=== PATIENT | female | born 1950 | race Two or more races ===

== ENCOUNTER 2017-10-23 06:10 | Emergency (ER) | payer SELFPAY ==
[~2017-10-23] VITALS: Ht 160 cm; Wt 81.6 kg
[2017-10-23] MEDS ORDERED: IPRATRPIUM/ALBUTEROL 0.5/2.5MG 3 ML NEBU. ONE (06:21)
--- NOTE | 2017-10-23 06:29 | EKG ---
[facility] [address] [place] [address] Test Date: 2017-10-23 Test Time: 06:21:51 Pat Name: AMARI WEINSTEIN Department: Room: Gender: F [employer]: : 1950 Requested By: JULIA CANTRELL Order Number: [id number] Reading MD: Measurements Intervals [place] Rate: 72 P: 49 NH: 166 QRS: 21 QRSD: 88 T: 49 QT: 398 QTc: 437 Interpretive Statements SINUS RHYTHM QRS(T) CONTOUR ABNORMALITY CONSIDER ANTEROSEPTAL MYOCARDIAL DAMAGE T ABNORMALITY IN ANTERIOR LEADS ABNORMAL ECG RI6.01 No previous ECG available for comparison
[2017-10-23] MEDS ORDERED: IPRATRPIUM/ALBUTEROL 0.5/2.5MG 3 ML NEBU. NEB ONE (06:30)
--- NOTE | 2017-10-23 06:36 | PHYS DOC ---
Past Medical History Past Medical History: Hypertension Adult General Chief Complaint Chief Complaint: SHORTNESS OF BREATH HPI HPI Patient is a 66 year old female who presents with sinus congestion, productive cough, shortness of breath. She also has pressure-like chest pain, described as nonradiating. Her shortness of breath worsens with exertion, no reported orthopnea. Denies history of PE or DVT. Patient traveled here from [place] 3 weeks ago and plan to return this morning by plane. She denies pain or swelling in her legs, she is a nonsmoker, she used a family members inhaler, no history of reactive airway disease. No fevers reported. Denies history of coronary artery disease. She did take her losartan this morning at 5 AM Review of Systems Review of Systems Constitutional: Denies fever or chills [] Eyes: Denies change in visual acuity, redness, or eye pain [] HENT: Per history of present illness Respiratory: Per history of present illness Cardiovascular: No additional information not addressed in HPI [] GI: Denies abdominal pain, nausea, vomiting, bloody stools or diarrhea [] : Denies dysuria or hematuria [] Musculoskeletal: Denies back pain or joint pain [] Integument: Denies rash or skin lesions [] Neurologic: Denies headache, focal weakness or sensory changes [] All other systems were reviewed and found to be within normal limits, except as documented in this note. Current Medications Current Medications Current Medications Medications (Trade) Dose Ordered Sig/German Start Time Stop Time Status Last Admin Dose Admin Albuterol/ Ipratropium (Duoneb) 3 ml 1X ONCE 10/23/17 06:30 10/23/17 06:45 DC 10/23/17 06:30 3 ML Aspirin (Ecotrin) 325 mg 1X ONCE 10/23/17 06:45 10/23/17 06:46 DC 10/23/17 06:46 325 MG Info (Do NOT chart on this entry -- for MONITORING) 1 each PRN DAILY PRN 10/23/17 07:00 10/25/17 06:59 Iohexol (Omnipaque 300 Mg/ml) 75 ml 1X ONCE 10/23/17 07:00 10/23/17 07:01 DC 10/23/17 07:11 75 ML Allergies Allergies Allergies Coded Allergies Type Severity Reaction Last Updated Verified No Known Drug Allergies 10/23/17 No Physical Exam Physical Exam Constitutional: Well developed, well nourished, no acute distress, non-toxic appearance. [] HENT: Normocephalic, atraumatic, bilateral external ears normal, oropharynx moist, no oral exudates, nose normal. [] Eyes: PERRLA, EOMI, conjunctiva normal, no discharge. [] Neck: Normal range of motion, no tenderness, supple, no stridor. [] Cardiovascular:Heart rate regular with regular rhythm, no murmur [] Lungs & Thorax: Bilateral breath sounds, expiratory wheeze diffusely Abdomen: soft, no tenderness, no masses, no pulsatile masses. [] Skin: Warm, dry, no erythema, no rash. [] Back: No tenderness, no CVA tenderness. [] Extremities: No tenderness, no cyanosis, no clubbing, ROM intact, no edema, negative Homans bilaterally Neurologic: Alert and oriented X 3, normal motor function, normal sensory function, no focal deficits noted. [] Psychologic: Affect normal, judgement normal, mood normal. [] Current Patient Data Vital Signs Vital Signs Date Time Temp Pulse Resp B/P (MAP) Pulse Ox O2 Delivery O2 Flow Rate FiO2 10/23/17 06:26 95 Nasal Cannula 3.0 10/23/17 06:13 97.7 86 26 165/110 (128) 97.7 Lab Values Laboratory Tests Test 10/23/17 06:27 10/23/17 06:30 10/23/17 06:32 POC Troponin I 0.08 ng/ml (<0.08) White Blood Count 11.6 x10^3/uL (4.0-11.0) H Red Blood Count 4.43 x10^6/uL (3.50-5.40) Hemoglobin 13.0 g/dL (12.0-15.5) Hematocrit 39.4 % (36.0-47.0) Mean Corpuscular Volume 89 fL (79-100) Mean Corpuscular Hemoglobin 29 pg (25-35) Mean Corpuscular Hemoglobin Concent 33 g/dL (31-37) Red Cell Distribution Width 14.4 % (11.5-14.5) Platelet Count 266 x10^3/uL (140-400) Neutrophils (%) (Auto) 76 % (31-73) H Lymphocytes (%) (Auto) 11 % (24-48) L Monocytes (%) (Auto) 7 % (0-9) Eosinophils (%) (Auto) 5 % (0-3) H Basophils (%) (Auto) 1 % (0-3) Neutrophils # (Auto) 8.8 x10^3uL (1.8-7.7) H Lymphocytes # (Auto) 1.3 x10^3/uL (1.0-4.8) Monocytes # (Auto) 0.8 x10^3/uL (0.0-1.1) Eosinophils # (Auto) 0.6 x10^3/uL (0.0-0.7) Basophils # (Auto) 0.1 x10^3/uL (0.0-0.2) Prothrombin Time 12.8 SEC (11.7-14.0) Prothrombin Time INR 1.0 (0.8-1.1) Magnesium Level 2.0 mg/dL (1.8-2.4) IT-Djb-[id number]-Type Natriuretic Peptide 167 pg/mL (0-124) H POC Hemoglobin 12.9 g/dL (12-15) POC Hematocrit 38 % (36-40) POC Sodium 139 mmol/L (135-145) POC Potassium 3.8 mmol/L (3.5-5.0) POC Chloride 110 mmol/L (98-110) POC Total CO2 21 mmol/L (23-32) L Anion Gap 13 mmol/L (6-14) POC Blood Urea Nitrogen 12 mg/dL (8-26) POC Creatinine 0.6 mg/dL (0.5-1.4) Glucose Level 127 mg/dL (70-99) H POC Ionized Calcium (Ishaan) 0.91 mmol/L (1.13-1.32) L Laboratory Tests 10/23/17 06:30 Laboratory Tests 10/23/17 06:32 EKG EKG 72 bpm, sinus, normal axis, normal intervals, no ST elevation or depression, biphasic T-wave in V3 and V4, nonischemic T waves, interpreted by wa approver shows 77 bpm, sinus rhythm, no dysrhythmia appreciated, interpreted by me SPO2 shows 94% with good waveform, on 2 L NC O2 interpreted by wa Radiology/Procedures Radiology/Procedures CTA Chest: IMPRESSION: No CT evidence of central pulmonary emboli. Course & Med Decision Making Course & Med Decision Making Pertinent Labs and Imaging studies reviewed. (See chart for details) Pt was given DuoNeb breathing treatments while labs, EKG, CT of the chest was performed. There is no acute findings on ED workup. Patient was feeling better. Wheezing resolved after breathing treatments. Counseled patient on home treatment with 5 days of prednisone, albuterol inhaler as needed. Return if worsening symptoms. Patient will wait 3 days before traveling back to her home to ensure symptoms improved. Dragon Disclaimer Dragon Disclaimer This electronic medical record was generated, in whole or in part, using a voice recognition dictation system. Departure Departure Impression: Primary Impression: Upper respiratory infection Disposition: HOME, SELF-CARE Condition: IMPROVED Referrals: NO PCP (PCP) Scripts Prednisone (PREDNISONE) 50 Mg Tablet 1 TAB PO DAILY, #5 TAB Prov: JULIA CANTRELL MD 10/23/17 Albuterol Sulfate (PROAIR HFA INHALER) 8.5 Gm Hfa.aer.ad 1-2 PUFF INH PRN Q4-6HRS Y for SHORTNESS OF BREATH, #1 INHALER 0 Refills with spacer Prov: JULIA CANTRELL MD 10/23/17 JULIA CANTRELL MD Oct 23, 2017 06:36
[2017-10-23 06:37] LABS: POTASSIUM ISTAT 3.8 mmol/L (3.5-5.0)
[2017-10-23] MEDS ORDERED: ASPIRIN ENTERIC COATED 325 MG TABLET.DR. PO ONE (06:45)
[2017-10-23 06:49] LABS: BASO # 0.1 x10^3/uL (0.0-0.2); BASO % 1 % (0-3); EOS % 5 % (0-3); HEMATOCRIT 39.4 % (36.0-47.0); LYMPH # 1.3 x10^3/uL (1.0-4.8); LYMPH % 11 % (24-48); MEAN CORPUSCULAR HEMOGLOBIN 29 pg (25-35); MEAN CORPUSCULAR HGB CONC 33 g/dL (31-37); MEAN CORPUSCULAR VOLUME 89 fL (79-100); MONO % 7 % (0-9); NEUT % 76 % (31-73); PLATELET COUNT 266 x10^3/uL (140-400); RED BLOOD COUNT 4.43 x10^6/uL (3.50-5.40); RED CELL DISTRIBUTION WIDTH 14.4 % (11.5-14.5); WHITE BLOOD COUNT 11.6 x10^3/uL (4.0-11.0)
[2017-10-23] MEDS ORDERED: CONTRAST GIVEN MC PRN (07:00)
[2017-10-23] MEDS ORDERED: IOHEXOL 300 MG/ML 100ML VIAL. IV ONE (07:00)
[2017-10-23 07:17] LABS: PROTHROMBIN TIME PATIENT 12.8 SEC (11.7-14.0)
[2017-10-23 07:30] VITALS: BP 127/65
--- NOTE | 2017-10-23 07:48 | RAD ---
CTA of the chest with contrast, 10/23/2017: History: Chest pain, shortness of breath, cough, recent travel Multidetector CT imaging was performed following an IV bolus injection of iodinated contrast material. Multiplanar reconstructions were produced including coronal and sagittal MIP images. No filling defects are seen in the central pulmonary arteries to suggest pulmonary emboli. There is mild calcific plaquing of the thoracic aorta without evidence of aneurysm. No mediastinal or hilar adenopathy is seen. There is a calcified granuloma in the right base. No pulmonary consolidation is seen. There is no evidence of pleural fluid. There are moderate scattered degenerative changes in the spine. IMPRESSION: No CT evidence of central pulmonary emboli. PQRS Compliance Statement: One or more of the following individualized dose reduction techniques were utilized for this examination: 1. Automated exposure control 2. Adjustment of the mA and/or kV according to patient size 3. Use of iterative reconstruction technique
[2017-10-23] MEDS ORDERED: PRED50TA PO (08:14)
[2017-10-23] MEDS ORDERED: PROAIR HFA8.5 GM INH (08:14)
== END 2017-10-23 08:24 | disposition home or self-care (01) ==
LOC: ER 06:10
DX: J06.9 Acute upper respiratory infection, unspecified (principal); R07.89 Other chest pain; I10 Essential (primary) hypertension
CPT/HCPCS: 36415; 71275; 80047; 83735; 83880; 84484; 85025; 85610; 93005; 94250; 94640; 99285; J7620; Q9967